=== PATIENT | female | born 1930 | race Caucasian/White ===

== ENCOUNTER 2016-08-21 13:23 | Emergency (ER) | payer OTHER ==
[~2016-08-21] VITALS: Ht 152.4 cm; Wt 70.9 kg
[~2016-08-21 13:23] MED LIST: AMLODIPINE BESYL5 MG PO; ANALGESIC325 MG PO; Cymbalta PO; FUROSEMIDE20 MG PO; HYDROCODON-ACE1 EAC7 PO; IMDUR30 MG PO; ISOSORBIDE DINI30 MG PO; LIPITOR40 MG PO; LISINOPRIL20 MG PO; LOPRESSOR100 M1 PO; LOPRESSOR50 MG PO; Levothroid,Synthroid PO; Lopressor PO; NORVASC2.5 MG PO; OMEPRAZOLE20 MG PO; Prilosec PO; ST. JOSEPH ASPI81 MG PO; SYNTHROID75 MCG PO; ZOLOFT100 MG PO; Zestril,Prinivil PO
[2016-08-21 13:51] LABS: POINT-OF-CARE METER ID UU14100415
[2016-08-21 14:14] LABS: HEMATOCRIT 42.7 % (36.0-46.0); MCH 29.1 PG (29.0-34.0); MCHC 31.9 G/DL (30.0-36.0); MCV 91.4 FL (83-99); MEAN PLAT.VOLUME 10.2 uM^3 (9.5-12.4); PLATELET COUNT 252 K/uL (156-360); RBC DIS.WIDTH-CV 14.7 % (11.8-14.6); RED BLOOD COUNT 4.67 M/uL (3.80-5.20); WHITE BLOOD COUNT 6.7 K/uL (4.1-10.2)
[2016-08-21 14:22] LABS: CHLORIDE 106 mEq/L (99-109); POTASSIUM 4.3 mEq/L (3.7-5.4); SODIUM 139 mEq/L (136-147)
[2016-08-21 14:24] LABS: GLUCOSE 101 mg/dL (70-99); INTER. NORMALIZED RATIO 1.1; PROTHROMBIN TIME 11.2 (9.2-11.2); PTT 28.7 (25-32)
[2016-08-21 14:26] LABS: ANION GAP 8 MEQ/L (2-14); TOTAL BILIRUBIN 0.6 mg/dL (0.0-1.0)
[2016-08-21 14:28] LABS: ALKALINE PHOSPHATASE 75 IU/L (3-129); GFR ESTIMATE (CALCULATED) 35 mL/min/
[2016-08-21 14:29] LABS: UREA NITROGEN (BUN) 20 mg/dL (9-23)
[2016-08-21 16:01] VITALS: BP 196/80
== END 2016-08-21 16:05 | disposition home or self-care (01) ==
LOC: EME 13:23
PROVIDERS: Emergency Medicine
DX: S00.81XA Abrasion of other part of head, initial encounter (principal); V49.88XA Car occupant (driver) (passenger) injured in other specified transport accidents, initial encounter; I25.2 Old myocardial infarction; I10 Essential (primary) hypertension; K21.9 Gastro-esophageal reflux disease without esophagitis; E78.5 Hyperlipidemia, unspecified; Z98.61 Coronary angioplasty status; Z79.82 Long term (current) use of aspirin; Z87.891 Personal history of nicotine dependence
CPT/HCPCS: 70450; 70486; 80053; 82948; 85027; 85610; 85730; 99281; 99283

== ENCOUNTER 2016-12-08 12:19 | Inpatient (IN) | payer OTHER ==
[~2016-12-08] VITALS: Ht 152.4 cm; Wt 64.0 kg
[~2016-12-08 12:19] MED LIST changes: +LISINOPRIL10 MG PO; -LISINOPRIL20 MG PO
[2016-12-08 12:48] LABS: BASOPHIL COUNT 0.1 K/uL (0-0.1); EOSINOPHIL (%) 1.4 % (0-5); EOSINOPHIL COUNT 0.2 K/uL (0-0.3); IMMATURE GRANULOCYTE (%) 0.4 % (0.0-0.7); INSTRUMENT ABS NEUTROPHIL CT 7.1 K/uL; LYMPHOCYTE COUNT 2.7 K/uL (1.0-2.8); MCH 29.5 PG (29.0-34.0); MCHC 32.1 G/DL (30.0-36.0); MCV 91.7 FL (83-99); MEAN PLAT.VOLUME 10.6 uM^3 (9.5-12.4); MONOCYTE (%) 5.9 % (3-12); MONOCYTE COUNT 0.6 K/uL (0-0.8); NEUTROPHIL (%) 66.2 % (45-76); NEUTROPHIL COUNT 7.1 K/uL (1.8-6.4); PLATELET COUNT 350 K/uL (156-360); RBC DIS.WIDTH-CV 14.5 % (11.8-14.6); RBC DIS.WIDTH-SD 48.9 % (39-53); RED BLOOD COUNT 4.58 M/uL (3.80-5.20); WHITE BLOOD COUNT 10.7 K/uL (4.1-10.2)
[2016-12-08 12:53] LABS: PROTHROMBIN TIME 11.5 SEC (10.2-12.9)
[2016-12-08 12:55] LABS: PTT 28.3 SEC (25-37)
[2016-12-08 13:02] LABS: CHLORIDE 105 mEq/L (99-109); POTASSIUM 4.3 mEq/L (3.7-5.4); SODIUM 136 mEq/L (136-147)
[2016-12-08 13:04] LABS: GLUCOSE 105 mg/dL (70-99)
[2016-12-08 13:05] LABS: ANION GAP 8 MEQ/L (2-14); TROP-I INTERPRETATION POSITIVE
[2016-12-08 13:06] LABS: TROPONIN-I 16.97 ng/mL (0.0-0.30)
[2016-12-08 13:08] LABS: GFR ESTIMATE (CALCULATED) 33 mL/min/
[2016-12-08 13:09] LABS: UREA NITROGEN (BUN) 31 mg/dL (9-23)
[2016-12-08] MEDS ORDERED: SERTRALINE HCL100 MG PO (13:58)
[2016-12-08] MEDS ORDERED: SYNTHROID75 MCG PO (13:59)
[2016-12-08] MEDS ORDERED: IMDUR30 MG PO (14:01)
[2016-12-08 15:00] VITALS: BP 117/78
[2016-12-08 15:15] LABS: HDL CHOLESTEROL 46 MG/DL (Desirable>=50); LDL CHOLESTEROL 172 mg/dL (Desirable<100); NON-HDL CHOLESTEROL 191 mg/dL (Desirable<160); TOTAL CHOLESTEROL 237 mg/dL (Desirable<200); TRIGLYCERIDES 95 MG/DL (Normal: <150)
[2016-12-08 16:00] VITALS: BP 114/63
[2016-12-08 16:33] LABS: METH RESISTANT S AUREUS PCR NEGATIVE (NEGATIVE)
[2016-12-08 16:34] LABS: PROBE CHECK PASS; SPECIMEN PROCESSING CONTROL PASS
[2016-12-08 16:45] LABS: Estimated Average Glucose 114 mg/dL (70-123); HEMOGLOBIN A1c (GLYCOHEMOGLOB) 5.6 % HGB (Below 5.7)
[2016-12-08 17:00] VITALS: BP 122/88
[2016-12-08 18:00] VITALS: BP 124/56
[2016-12-08 20:00] VITALS: BP 105/54
[2016-12-08 21:30] VITALS: BP 105/54
[2016-12-09] VITALS (11 sets, daily range): BP systolic 80–128; BP diastolic 39–68
[2016-12-09 01:24] LABS: TROP-I INTERPRETATION POSITIVE
[2016-12-09 01:29] LABS: TROPONIN-I 11.51 ng/mL (0.0-0.30)
[2016-12-09 07:09] LABS: TROP-I INTERPRETATION POSITIVE; TROPONIN-I 9.53 ng/mL (0.0-0.30)
[2016-12-09 22:02] LABS: ADD MIUA? NO; BILIRUBIN NEGATIVE; BLOOD NEGATIVE; COLOR YELLOW ((YELLOW)); GLUCOSE (STRIP) NEGATIVE; KETONES NEGATIVE; LEUKOCYTES NEGATIVE; NITRITE NEGATIVE; PROTEIN (STRIP) NEGATIVE; UCUL ADDED? NO; UROBILINOGEN 0.2 MG/DL (0.2-1.0)
[2016-12-10] VITALS (9 sets, daily range): BP systolic 82–154; BP diastolic 49–78
[2016-12-10 06:09] LABS: EOSINOPHIL (%) 0 % (0-5); HEMATOCRIT 36.2 % (36.0-46.0); IMMATURE GRANULOCYTE (%) 0.6 % (0.0-0.7); IMMATURE GRANULOCYTE COUNT 0.1 K/uL; INSTRUMENT ABS NEUTROPHIL CT 13.7 K/uL; LYMPHOCYTE COUNT 2.4 K/uL (1.0-2.8); MCHC 31.2 G/DL (30.0-36.0); MCV 92.8 FL (83-99); MEAN PLAT.VOLUME 11.1 uM^3 (9.5-12.4); MONOCYTE (%) 4.8 % (3-12); MONOCYTE COUNT 0.8 K/uL (0-0.8); NEUTROPHIL (%) 80.3 % (45-76); NEUTROPHIL COUNT 13.7 K/uL (1.8-6.4); PLATELET COUNT 352 K/uL (156-360); RBC DIS.WIDTH-CV 14.7 % (11.8-14.6); RBC DIS.WIDTH-SD 49.6 % (39-53); WHITE BLOOD COUNT 17.1 K/uL (4.1-10.2)
[2016-12-10 07:03] LABS: ALKALINE PHOSPHATASE 47 IU/L (3-129); ANION GAP 10 MEQ/L (2-14); CHLORIDE 106 MEQ/L (99-109); GFR ESTIMATE (CALCULATED) 38 mL/min/; GLUCOSE 100 mg/dL (70-99); POTASSIUM 4.8 MEQ/L (3.7-5.4); SAMPLE HEMOLYSIS CHECK 0; SAMPLE ICTERIC CHECK 0; SAMPLE LIPEMIA CHECK 0; SODIUM 136 MEQ/L (136-147); TOTAL BILIRUBIN 0.4 MG/DL (0.0-1.0); UREA NITROGEN (BUN) 32 mg/dL (9-23)
[2016-12-11] VITALS (7 sets, daily range): BP systolic 115–132; BP diastolic 53–104
[2016-12-11 05:34] LABS: EOSINOPHIL (%) 0.7 % (0-5); EOSINOPHIL COUNT 0.1 K/uL (0-0.3); HEMATOCRIT 38.6 % (36.0-46.0); IMMATURE GRANULOCYTE (%) 0.5 % (0.0-0.7); IMMATURE GRANULOCYTE COUNT 0.1 K/uL; INSTRUMENT ABS NEUTROPHIL CT 8.4 K/uL; MCH 29.6 PG (29.0-34.0); MCHC 31.9 G/DL (30.0-36.0); MEAN PLAT.VOLUME 10.7 uM^3 (9.5-12.4); MONOCYTE (%) 6.9 % (3-12); MONOCYTE COUNT 0.9 K/uL (0-0.8); NEUTROPHIL (%) 62.1 % (45-76); NEUTROPHIL COUNT 8.4 K/uL (1.8-6.4); PLATELET COUNT 386 K/uL (156-360); RBC DIS.WIDTH-CV 14.8 % (11.8-14.6); RBC DIS.WIDTH-SD 50.8 % (39-53); RED BLOOD COUNT 4.15 M/uL (3.80-5.20); WHITE BLOOD COUNT 13.5 K/uL (4.1-10.2)
[2016-12-11 06:46] LABS: ANION GAP 7 MEQ/L (2-14); CHLORIDE 104 MEQ/L (99-109); GFR ESTIMATE (CALCULATED) 35 mL/min/; GLUCOSE 85 mg/dL (70-99); POTASSIUM 4.7 MEQ/L (3.7-5.4); SAMPLE HEMOLYSIS CHECK 0; SAMPLE ICTERIC CHECK 0; SAMPLE LIPEMIA CHECK 0; SODIUM 134 MEQ/L (136-147); UREA NITROGEN (BUN) 25 mg/dL (9-23)
[2016-12-12] VITALS: BP 131/63
[2016-12-12 04:00] VITALS: BP 111/54
[2016-12-12 05:59] LABS: BASOPHIL COUNT 0.1 K/uL (0-0.1); EOSINOPHIL (%) 1.9 % (0-5); EOSINOPHIL COUNT 0.2 K/uL (0-0.3); HEMATOCRIT 38.4 % (36.0-46.0); IMMATURE GRANULOCYTE (%) 0.5 % (0.0-0.7); IMMATURE GRANULOCYTE COUNT 0.1 K/uL; INSTRUMENT ABS NEUTROPHIL CT 5.9 K/uL; LYMPHOCYTE COUNT 3.5 K/uL (1.0-2.8); MCH 29.2 PG (29.0-34.0); MCHC 31.8 G/DL (30.0-36.0); MCV 91.9 FL (83-99); MONOCYTE (%) 6.4 % (3-12); MONOCYTE COUNT 0.7 K/uL (0-0.8); NEUTROPHIL COUNT 5.9 K/uL (1.8-6.4); PLATELET COUNT 352 K/uL (156-360); RBC DIS.WIDTH-CV 14.6 % (11.8-14.6); RBC DIS.WIDTH-SD 49.2 % (39-53); RED BLOOD COUNT 4.18 M/uL (3.80-5.20); WHITE BLOOD COUNT 10.3 K/uL (4.1-10.2)
[2016-12-12 06:18] LABS: ALKALINE PHOSPHATASE 54 IU/L (3-129); ANION GAP 10 MEQ/L (2-14); CHLORIDE 104 MEQ/L (99-109); GFR ESTIMATE (CALCULATED) 35 mL/min/; GLUCOSE 89 mg/dL (70-99); POTASSIUM 4.6 MEQ/L (3.7-5.4); SAMPLE HEMOLYSIS CHECK 0; SAMPLE ICTERIC CHECK 0; SAMPLE LIPEMIA CHECK 0; SODIUM 138 MEQ/L (136-147); UREA NITROGEN (BUN) 22 mg/dL (9-23)
[2016-12-12 06:21] LABS: TOTAL BILIRUBIN 0.7 MG/DL (0.0-1.0)
[2016-12-12 08:00] VITALS: BP 132/76
[2016-12-12] MEDS ORDERED: LOPRESSOR25 MG PO (09:04)
[2016-12-12] MEDS ORDERED: CLOPIDOGREL75 MG PO (09:04)
[2016-12-12] MEDS ORDERED: LISINOPRIL2.5 MG PO (09:04)
[2016-12-12] MEDS ORDERED: NITROSTAT0.4 MG SL (09:04)
[2016-12-12] MEDS ORDERED: FUROSEMIDE20 MG PO (09:04)
== END 2016-12-12 10:50 | disposition home health service (06) | DRG 280 ==
LOC: EME 12:19 → EDOF 13:39 → 4WEST 13:39 → ENRESERV 13:43 → 4WEST 14:36 → ENRESERV 12-10 08:19 → 4WEST 12-12 10:50
PROVIDERS: Emergency Medicine; Hospitalist; Internal Medicine
DX: I21.4 Non-ST elevation (NSTEMI) myocardial infarction (principal); I50.21 Acute systolic (congestive) heart failure; I13.0 Hypertensive heart and chronic kidney disease with heart failure and stage 1 through stage 4 chronic kidney disease, or unspecified chronic kidney disease; T82.855A Stenosis of coronary artery stent, initial encounter; F05 Delirium due to known physiological condition; E03.9 Hypothyroidism, unspecified; E78.5 Hyperlipidemia, unspecified; I25.5 Ischemic cardiomyopathy; I25.10 Atherosclerotic heart disease of native coronary artery without angina pectoris; F03.90 Unspecified dementia, unspecified severity, without behavioral disturbance, psychotic disturbance, mood disturbance, and anxiety; K21.9 Gastro-esophageal reflux disease without esophagitis; K58.9 Irritable bowel syndrome, unspecified; I25.82 Chronic total occlusion of coronary artery; I65.21 Occlusion and stenosis of right carotid artery; Z91.041 Radiographic dye allergy status; Z88.2 Allergy status to sulfonamides; Z79.82 Long term (current) use of aspirin; Z88.5 Allergy status to narcotic agent; I25.2 Old myocardial infarction; Z95.1 Presence of aortocoronary bypass graft; Z95.5 Presence of coronary angioplasty implant and graft; Z87.891 Personal history of nicotine dependence; Z85.828 Personal history of other malignant neoplasm of skin; Z82.49 Family history of ischemic heart disease and other diseases of the circulatory system
CPT/HCPCS: 71010; 80048; 80053; 80061; 81003; 83036; 84484; 85025; 85347; 85610; 85730; 87641; 90686; 93005; 93306; 99281; 99285; C1769; C1887; J1200; J1630; J1644; J2060; J2250; J2930; J3010; J7040; S0028